=== PATIENT | female | born 1995 | race Caucasian/White ===

== ENCOUNTER 2017-08-22 18:56 | Emergency (ER) | payer MEDICAID ==
[~2017-08-22] VITALS: Ht 160 cm; Wt 75.3 kg
[2017-08-22 19:07] VITALS: Ht 160 cm; Wt 75.3 kg
[2017-08-22 20:18] VITALS: BP 122/81
== END 2017-08-22 20:10 | disposition home or self-care (01) ==
LOC: ED 18:56
DX: O26.893 Other specified pregnancy related conditions, third trimester (principal); R10.30 Lower abdominal pain, unspecified